=== PATIENT | female | born 1960 | race Caucasian/White ===

== ENCOUNTER → 2021-05-27 | Day surgery (SDC) | payer OTHER ==
[~2021-05-27] VITALS: Ht 175.3 cm; Wt 90.3 kg
[~2021-05-27] MED LIST: ACETAMINOPHEN500 M1 PO; ACTIVE-Q200 MG PO; ALDACTONE25 MG PO; ANASTROZOLE1 MG PO; CLARITIN10 MG PO; COLACE100 MG PO; CYPROHEPTADINE H4 M1 PO; EFFEXOR-XR 75 M75 MG PO; FOLIC ACID1 MG PO; FUROSEMIDE20 MG PO; K-DUR20 MEQ PO; LOPRESSOR50 MG PO; MELATONIN10 M2 PO; MIRALAX17 GM PO; NEURONTIN300 MG PO; PENTOXIFYLLINE400 M1 PO; PREDNISONE 20MG20 MG PO; PROCTOZONE-HC 230 GM TOP; VALACYCLOVIR500 MG PO; VITAMIN B125000 MCG PO; VITAMIN C100 MG PO; VITAMIN D310000 UNIT PO
== END | disposition home or self-care (01) ==
LOC: FAS 06:24
DX: K62.1 Rectal polyp (principal); K57.30 Diverticulosis of large intestine without perforation or abscess without bleeding; K64.8 Other hemorrhoids; K58.0 Irritable bowel syndrome with diarrhea; D64.9 Anemia, unspecified; F41.9 Anxiety disorder, unspecified; M16.10 Unilateral primary osteoarthritis, unspecified hip; F17.210 Nicotine dependence, cigarettes, uncomplicated; I10 Essential (primary) hypertension; R91.1 Solitary pulmonary nodule; G47.30 Sleep apnea, unspecified; M43.10 Spondylolisthesis, site unspecified; E53.9 Vitamin B deficiency, unspecified; Z79.51 Long term (current) use of inhaled steroids; Z79.899 Other long term (current) drug therapy; Z88.1 Allergy status to other antibiotic agents; Z88.2 Allergy status to sulfonamides; Z88.8 Allergy status to other drugs, medicaments and biological substances; Z96.649 Presence of unspecified artificial hip joint
CPT/HCPCS: J2250; J2704; J7120